=== PATIENT | female | born 1985 | race Two or more races ===

== ENCOUNTER 2018-03-13 12:43 | Inpatient (IN) | payer OTHER ==
[~2018-03-13] VITALS: Ht 165.1 cm; Wt 95.3 kg
[2018-03-13] MEDS ORDERED: PRENATAL TABLE1 EAC1 PO (13:21)
[2018-03-13] MEDS ORDERED: ASA81 MG PO (13:21)
== END 2018-03-25 11:00 | disposition home or self-care (01) | DRG 782 ==
LOC: LDR 12:43 → OB/GYN 12:43 → LDR 21:59 → OB/GYN 03-15 07:46
PROVIDERS: Obstetrics & Gynecology Maternal & Fetal Medicine
PROC: 4A1HXCZ Monitoring of Products of Conception, Cardiac Rate, External Approach (ICD-10-PCS; 2018-03-13)
PROC: 0UVC7ZZ Restriction of Cervix, Via Natural or Artificial Opening (ICD-10-PCS; principal; 2018-03-13 16:00)
PROC: BY4CZZZ Ultrasonography of Second Trimester, Single Fetus (ICD-10-PCS; 2018-03-23)
DX: O34.32 Maternal care for cervical incompetence, second trimester (principal)

== ENCOUNTER 2018-04-17 09:38 | Outpatient (CLI) | payer OTHER ==
[~2018-04-17 09:38] MED LIST: ASA81 MG PO; PRENATAL TABLE1 EAC1 PO
== END 2018-04-17 10:18 | disposition home or self-care (01) ==
LOC: NST 09:38
DX: Z34.83 Encounter for supervision of other normal pregnancy, third trimester (principal)

== ENCOUNTER 2018-05-01 09:57 | Outpatient (CLI) | payer OTHER | END 2018-05-01 10:33 | disposition home or self-care (01) | LOC: NST 09:57 | DX: Z34.83 Encounter for supervision of other normal pregnancy, third trimester (principal) ==

== ENCOUNTER 2018-05-22 09:15 | Inpatient (IN) | payer OTHER ==
[~2018-05-22] VITALS: Ht 162.6 cm; Wt 102.5 kg
== END 2018-06-06 14:19 | disposition home or self-care (01) | DRG 775 ==
LOC: LDR 06-04 16:04 → OB/GYN 06-04 16:04
PROC: 10E0XZZ Delivery of Products of Conception, External Approach (ICD-10-PCS; principal; 2018-06-04)
PROC: 0W8NXZZ Division of Female Perineum, External Approach (ICD-10-PCS; 2018-06-04)
PROC: 3E033VJ Introduction of Other Hormone into Peripheral Vein, Percutaneous Approach (ICD-10-PCS; 2018-06-04)
PROC: 4A033R1 Measurement of Arterial Saturation, Peripheral, Percutaneous Approach (ICD-10-PCS; 2018-06-04)
PROC: 4A1HXCZ Monitoring of Products of Conception, Cardiac Rate, External Approach (ICD-10-PCS; 2018-06-04)
DX: O42.013 Preterm premature rupture of membranes, onset of labor within 24 hours of rupture, third trimester (principal); Z3A.36 36 weeks gestation of pregnancy; Z37.0 Single live birth

== ENCOUNTER 2019-05-12 06:23 | Day surgery (SDC) | payer OTHER | END 2019-05-12 13:30 | disposition home or self-care (01) | LOC: CIR.AMB 06:23 | DX: H61.812 Exostosis of left external canal (principal) ==